=== PATIENT | female | born 1945 | race Asian ===

== ENCOUNTER 2016-11-11 18:20 | Emergency (ER) | payer MEDICARE, MEDICAID ==
[~2016-11-11] VITALS: Ht 152.4 cm; Wt 63.1 kg
[~2016-11-11 18:20] MED LIST: ASPI81TA39 PO; CARV25 PO; LEVO25TA4 PO; METF500T4 PO; PRAV10TA39 PO
[2016-11-11] MEDS ORDERED: AMLO2.5T PO (18:30)
[2016-11-11] MEDS ORDERED: LOSA25TA21 PO (18:30)
[2016-11-11] MEDS ORDERED: SODIUM CHLORIDE 0.9% 1,000 ML IV ONE (19:00)
[2016-11-11 19:07] LABS: BASOPHILS % (AUTO) 0.5 % (0.0-2.0); EOSINOPHILS % (AUTO) 4.4 % (1.0-6.0); HEMATOCRIT 33.9 % (36-46); HEMOGLOBIN 11.6 g/dL (12.0-16.0); LYMPHOCYTES # (AUTO) 1.3 K/uL (1.0-4.8); LYMPHOCYTES % (AUTO) 18.6 % (22.0-44.0); MEAN CORPUSCULAR HEMOGLOBIN 28.8 pg (26.0-34.0); MEAN CORPUSCULAR HGB CONC 34.2 G/dL (31.0-37.0); MEAN CORPUSCULAR VOLUME 84 fL (80-100); MONOCYTES # (AUTO) 0.6 K/uL (0.1-1.0); MONOCYTES % (AUTO) 8.7 % (2.0-9.0); NEUTROPHILS # (AUTO) 4.9 K/uL (1.8-7.7); NEUTROPHILS % (AUTO) 67.8 % (40.0-70.0); PLATELET COUNT (AUTO) 217 K/uL (150-450); RED BLOOD CELL COUNT(AUTO) 4.03 MIL/uL (4.00-5.20); RED CELL DISTRIBUTION WIDTH 12.5 % (11.5-14.5); WHITE BLOOD COUNT (AUTO) 7.2 K/uL (4.5-11.0)
[2016-11-11 19:14] LABS: CALCIUM, TOTAL 9.5 mg/dL (8.8-10.5); CREATININE 1.21 mg/dL (0.60-1.30); POTASSIUM 4.4 mmol/L (3.5-5.1)
[2016-11-11 19:20] LABS: ALBUMIN 4.2 g/dL (3.4-5.0); BILIRUBIN,TOTAL 0.2 mg/dL (0.1-1.0); TOTAL PROTEIN, SERUM 8.7 g/dL (6.4-8.2)
[2016-11-11] MEDS ORDERED: MECLIZINE HCL 25 MG TABLET PO ONE (19:30)
[2016-11-11 20:55] VITALS: BP 121/65
== END 2016-11-11 21:00 | disposition home or self-care (01) ==
LOC: EMS 18:24
DX: R42 Dizziness and giddiness (principal); R51 Headache; E11.9 Type 2 diabetes mellitus without complications; I10 Essential (primary) hypertension; E03.9 Hypothyroidism, unspecified; Z79.82 Long term (current) use of aspirin
CPT/HCPCS: 70450; 82948; 82962; 93005; 99285

== ENCOUNTER 2017-03-29 10:24 | Emergency (ER) | payer MEDICARE, MEDICAID ==
[~2017-03-29] VITALS: Ht 152.4 cm; Wt 61.4 kg
[~2017-03-29 10:24] MED LIST changes: +AMLO2.5T PO; -CARV25 PO; -LEVO25TA4 PO; +LOSA25TA21 PO; -PRAV10TA39 PO
[2017-03-29] MEDS ORDERED: OSEL75 PO (10:56)
[2017-03-29] MEDS ORDERED: BENZ-51 PO (10:56)
[2017-03-29] MEDS ORDERED: ACETAMINOPHEN 325 MG TABLET PO ONE (13:30)
[2017-03-29 13:44] VITALS: BP 145/91
== END 2017-03-29 13:46 | disposition home or self-care (01) ==
LOC: EMS 10:26
DX: J18.9 Pneumonia, unspecified organism (principal); J02.9 Acute pharyngitis, unspecified; J34.89 Other specified disorders of nose and nasal sinuses; E11.9 Type 2 diabetes mellitus without complications; I10 Essential (primary) hypertension; E03.9 Hypothyroidism, unspecified
CPT/HCPCS: 71046; 99284

== ENCOUNTER 2022-03-04 12:21 | Emergency (ER) | payer MEDICARE, MEDICAID ==
[~2022-03-04] VITALS: Ht 152.4 cm; Wt 56.8 kg
[~2022-03-04 12:21] MED LIST changes: -AMLO2.5T PO; +AMLO2.5T96 PO; +BENZ-70 PO; +LOSA-381 PO; -LOSA25TA21 PO; +METF-1211 PO; -METF500T4 PO; +OSEL75 PO
[2022-03-04] MEDS ORDERED: [UNRECOGNIZED DRUG - CODE] PO (12:31)
[2022-03-04] MEDS ORDERED: CALC-1038 PO (12:31)
[2022-03-04] MEDS ORDERED: FLUC150T61 PO (12:31)
[2022-03-04] MEDS ORDERED: PRAV10TA39 PO (12:31)
[2022-03-04] MEDS ORDERED: CARV6 PO (12:31)
[2022-03-04] MEDS ORDERED: CLOTRIMAZOLE 1% 45 GM VAGINAL CREAM VG ONE (13:45)
[2022-03-04 14:18] LABS: APPEARANCE,URINE CLEAR (CLEAR); BILIRUBIN,URINE NEGATIVE (NEGATIVE); GLUCOSE, URINE (UA) >=1000 mg/dL (NEGATIVE); KETONES,URINE NEGATIVE (NEGATIVE); LEUKOCYTE ESTERASE ,URINE SMALL (NEGATIVE); NITRATE,URINE NEGATIVE (NEGATIVE); OCCULT BLOOD,URINE NEGATIVE (NEGATIVE); PROTEIN,URINE NEGATIVE (NEGATIVE); SPECIFIC GRAVITIY, URINE 1.018 (1.003-1.030); UROBILINOGEN,URINE <=1.0 mg/dL (<=1.0)
[2022-03-04 15:16] LABS: BACTERIA,URINE Many /HPF (None Seen); RBC,URINE None Seen /HPF (0-2)
[2022-03-04] MEDS ORDERED: CEPH-558 PO (15:55)
[2022-03-04] MEDS ORDERED: CEPHALEXIN MONOHYDRATE 500 MG CAPSULE PO ONE (16:00)
[2022-03-04 16:14] VITALS: BP 126/72
== END 2022-03-04 16:15 | disposition home or self-care (01) ==
LOC: EMS 12:34
DX: B37.31 Acute candidiasis of vulva and vagina (principal); N39.0 Urinary tract infection, site not specified; E11.9 Type 2 diabetes mellitus without complications; I10 Essential (primary) hypertension; E03.9 Hypothyroidism, unspecified; Z98.890 Other specified postprocedural states
CPT/HCPCS: 81001; 82962; 87086; 87186; 99284

== ENCOUNTER 2022-11-25 09:13 | Emergency (ER) | payer MEDICARE, MEDICAID ==
[~2022-11-25] VITALS: Ht 152.4 cm; Wt 56.8 kg
[~2022-11-25 09:13] MED LIST changes: -BENZ-70 PO; +CALC-1038 PO; +CARV6 PO; +CEPH-558 PO; +FLUC150T61 PO; -OSEL75 PO; +PRAV10TA39 PO; +[UNRECOGNIZED DRUG - CODE] PO
[2022-11-25 09:20] VITALS: BP 130/71; PULSE 93; RESP 18; TEMP 98.2
[2022-11-25] MEDS ORDERED: DOCU-412 PO (09:35)
[2022-11-25] MEDS ORDERED: DIPH25CA85 PO (09:35)
== END 2022-11-25 10:01 | disposition home or self-care (01) ==
LOC: EMS 09:20
DX: G47.00 Insomnia, unspecified (principal); K59.00 Constipation, unspecified; E11.9 Type 2 diabetes mellitus without complications; E78.00 Pure hypercholesterolemia, unspecified; I10 Essential (primary) hypertension; E03.9 Hypothyroidism, unspecified; Z98.890 Other specified postprocedural states
CPT/HCPCS: 82962; 99282

== ENCOUNTER 2022-12-13 10:05 | Emergency (ER) | payer MEDICARE, MEDICAID ==
[~2022-12-13] VITALS: Ht 149.9 cm; Wt 61.4 kg
[~2022-12-13 10:05] MED LIST changes: -CEPH-558 PO; +DIPH25CA85 PO; +DOCU-400 PO; -FLUC150T61 PO
[2022-12-13 10:16] VITALS: TEMP 98.6
[2022-12-13 10:28] LABS: COVID AG,FIA SOURCE NASAL SWAB
[2022-12-13 11:00] LABS: SARS-COV2 (COVID) ANTIGEN,FIA Negative (Negative)
[2022-12-13 11:01] LABS: INFLUENZA TYPE A NEGATIVE FOR TYPE A (NEGATIVE); INFLUENZA TYPE B NEGATIVE FOR TYPE B (NEGATIVE)
[2022-12-13] MEDS ORDERED: AZIT-103 PO (11:13)
[2022-12-13] MEDS ORDERED: AZITHROMYCIN 500 MG TABLET PO ONE (11:15)
[2022-12-13] MEDS ORDERED: EMPA25TA3 PO (11:20)
[2022-12-13] MEDS ORDERED: AMLO5TAB66 PO (11:20)
[2022-12-13] MEDS ORDERED: LOSA-382 PO (11:20)
[2022-12-13] MEDS ORDERED: LEVO75 PO (11:20)
[2022-12-13] MEDS ORDERED: SITA25 PO (11:20)
[2022-12-13 11:28] VITALS: BP 137/80; PULSE 78; RESP 18
== END 2022-12-13 11:45 | disposition home or self-care (01) ==
LOC: EMS 10:05
DX: J40 Bronchitis, not specified as acute or chronic (principal); E11.9 Type 2 diabetes mellitus without complications; E78.00 Pure hypercholesterolemia, unspecified; I10 Essential (primary) hypertension; E03.9 Hypothyroidism, unspecified; Z98.890 Other specified postprocedural states; Z20.822 Contact with and (suspected) exposure to COVID-19
CPT/HCPCS: 99284; 71046; 87426; 82962; 87804; Q9967; C9803

== ENCOUNTER 2022-12-22 08:08 | Emergency (ER) | payer MEDICARE, MEDICAID ==
[~2022-12-22] VITALS: Ht 152.4 cm; Wt 61.4 kg
[~2022-12-22 08:08] MED LIST changes: -AMLO2.5T96 PO; +AMLO5TAB66 PO; +AZIT-103 PO; -DOCU-400 PO; +DOCU-412 PO; +EMPA25TA3 PO; +LEVO75 PO; -LOSA-381 PO; +LOSA-382 PO; +SITA25 PO; -[UNRECOGNIZED DRUG - CODE] PO
[2022-12-22 08:12] VITALS: BP 143/80; PULSE 92; RESP 18; TEMP 97.7
[2022-12-22] MEDS ORDERED: BENZ-227 PO (08:26)
== END 2022-12-22 08:47 | disposition home or self-care (01) ==
LOC: EMS 08:08
DX: J40 Bronchitis, not specified as acute or chronic (principal); E11.9 Type 2 diabetes mellitus without complications; E78.00 Pure hypercholesterolemia, unspecified; I10 Essential (primary) hypertension; E03.9 Hypothyroidism, unspecified
CPT/HCPCS: 82962; 99283

== ENCOUNTER 2022-12-24 11:56 | Emergency (ER) | payer MEDICARE, MEDICAID ==
[~2022-12-24] VITALS: Ht 154.9 cm; Wt 68.2 kg
[~2022-12-24 11:56] MED LIST changes: -AZIT-103 PO; +BENZ-227 PO
[2022-12-24 12:11] VITALS: TEMP 98.6
[2022-12-24 14:36] LABS: BASOPHILS % (AUTO) 0.8 % (0.0-2.0); HEMATOCRIT 36.7 % (36-46); HEMOGLOBIN 11.9 g/dL (12.0-16.0); LYMPHOCYTES # (AUTO) 1.5 K/uL (1.0-4.8); LYMPHOCYTES % (AUTO) 29.1 % (22.0-44.0); MEAN CORPUSCULAR HGB CONC 32.5 G/dL (31.0-37.0); MEAN CORPUSCULAR VOLUME 86 fL (80-100); MONOCYTES # (AUTO) 0.4 K/uL (0.1-1.0); MONOCYTES % (AUTO) 7.8 % (2.0-9.0); NEUTROPHILS # (AUTO) 2.9 K/uL (1.8-7.7); NEUTROPHILS % (AUTO) 55.3 % (40.0-70.0); PLATELET COUNT (AUTO) 224 K/uL (150-450); RED BLOOD CELL COUNT(AUTO) 4.25 MIL/uL (4.00-5.20); WHITE BLOOD COUNT (AUTO) 5.2 K/uL (4.5-11.0)
[2022-12-24 14:46] LABS: CALCIUM, TOTAL 9.9 mg/dL (8.8-10.5); CREATININE 1.01 mg/dL (0.60-1.30); POTASSIUM 4.1 mmol/L (3.5-5.1)
[2022-12-24 14:58] LABS: BILIRUBIN,TOTAL 0.2 mg/dL (0.1-1.0); TOTAL PROTEIN, SERUM 8.9 g/dL (6.4-8.2)
[2022-12-24 15:45] VITALS: BP 133/74; PULSE 82; RESP 18
[2022-12-24] MEDS ORDERED: GUAI-1313 PO (16:05)
[2022-12-28] MEDS ORDERED: MECL-134 PO (16:09)
== END 2022-12-24 16:17 | disposition home or self-care (01) ==
LOC: EMS 12:01
DX: J40 Bronchitis, not specified as acute or chronic (principal); E11.9 Type 2 diabetes mellitus without complications; E78.00 Pure hypercholesterolemia, unspecified; I10 Essential (primary) hypertension; E03.9 Hypothyroidism, unspecified; Z98.890 Other specified postprocedural states
CPT/HCPCS: 71046; 80053; 82962; 83880; 85025; 99284; 36415-L1; 36415-TC

== ENCOUNTER 2023-02-26 13:38 | Emergency (ER) | payer MEDICARE, MEDICAID ==
[~2023-02-26] VITALS: Ht 153.7 cm; Wt 63.6 kg
[~2023-02-26 13:38] MED LIST changes: +MECL-134 PO
[2023-02-26 13:51] VITALS: BP 131/48; PULSE 87; RESP 16; TEMP 97.9
[2023-02-26 13:56] LABS: COVID AG,FIA SOURCE NASAL SWAB
[2023-02-26 14:18] LABS: SARS-COV2 (COVID) ANTIGEN,FIA Negative (Negative)
[2023-02-26 14:19] LABS: INFLUENZA TYPE A NEGATIVE FOR TYPE A (NEGATIVE); INFLUENZA TYPE B NEGATIVE FOR TYPE B (NEGATIVE)
[2023-02-26 14:28] LABS: RAPID GROUP A STREP NEGATIVE (NEGATIVE)
[2023-02-26] MEDS ORDERED: GUAIFDM PO (15:47)
[2023-02-26] MEDS ORDERED: ACET-2247 PO (15:47)
== END 2023-02-26 15:59 | disposition home or self-care (01) ==
LOC: EMS 14:11
DX: J06.9 Acute upper respiratory infection, unspecified (principal); E11.9 Type 2 diabetes mellitus without complications; I63.9 Cerebral infarction, unspecified; E78.00 Pure hypercholesterolemia, unspecified; I10 Essential (primary) hypertension; E03.9 Hypothyroidism, unspecified; G43.909 Migraine, unspecified, not intractable, without status migrainosus; Z98.890 Other specified postprocedural states; Z20.822 Contact with and (suspected) exposure to COVID-19
CPT/HCPCS: 82962; 87430; 87804; 99283

== ENCOUNTER 2023-08-05 09:04 | Emergency (ER) | payer MEDICARE, MEDICAID ==
[~2023-08-05] VITALS: Ht 149.9 cm; Wt 54.5 kg
[~2023-08-05 09:04] MED LIST changes: +ACET-2247 PO; +GUAIFDM PO
[2023-08-05] MEDS ORDERED: CARV6.2534 PO (09:13)
[2023-08-05 09:14] VITALS: BP 168/78; PULSE 76; RESP 18; TEMP 97.9
[2023-08-05 09:48] LABS: BASOPHILS % (AUTO) 0.9 % (0.0-2.0); EOSINOPHILS % (AUTO) 7.6 % (1.0-6.0); HEMATOCRIT 35.3 % (36-46); HEMOGLOBIN 11.4 g/dL (12.0-16.0); LYMPHOCYTES # (AUTO) 1.5 K/uL (1.0-4.8); LYMPHOCYTES % (AUTO) 33.9 % (22.0-44.0); MEAN CORPUSCULAR HEMOGLOBIN 27.7 pg (26.0-34.0); MEAN CORPUSCULAR HGB CONC 32.2 G/dL (31.0-37.0); MEAN CORPUSCULAR VOLUME 86 fL (80-100); MONOCYTES # (AUTO) 0.5 K/uL (0.1-1.0); NEUTROPHILS # (AUTO) 2.2 K/uL (1.8-7.7); NEUTROPHILS % (AUTO) 47.6 % (40.0-70.0); PLATELET COUNT (AUTO) 249 K/uL (150-450); RED BLOOD CELL COUNT(AUTO) 4.11 MIL/uL (4.00-5.20); RED CELL DISTRIBUTION WIDTH 12.6 % (11.5-14.5); WHITE BLOOD COUNT (AUTO) 4.5 K/uL (4.5-11.0)
[2023-08-05 09:59] LABS: CALCIUM, TOTAL 10.1 mg/dL (8.8-10.5); CREATININE 1.04 mg/dL (0.60-1.30); POTASSIUM 4.1 mmol/L (3.5-5.1)
[2023-08-05 10:06] LABS: BILIRUBIN,TOTAL 0.5 mg/dL (0.1-1.0); MAGNESIUM 2.1 mg/dL (1.80-2.40); TOTAL PROTEIN, SERUM 8.8 g/dL (6.4-8.2)
[2023-08-05 10:07] LABS: TROPONIN I-HIGH SENSITIVITY 4 ng/L (<51)
[2023-08-05 11:15] LABS: APPEARANCE,URINE CLEAR (CLEAR); BILIRUBIN,URINE NEGATIVE (NEGATIVE); COLOR,URINE COLORLESS (YELLOW); GLUCOSE, URINE (UA) NEGATIVE (NEGATIVE); KETONES,URINE NEGATIVE (NEGATIVE); LEUKOCYTE ESTERASE ,URINE NEGATIVE (NEGATIVE); NITRATE,URINE NEGATIVE (NEGATIVE); OCCULT BLOOD,URINE NEGATIVE (NEGATIVE); PH,URINE 7.5 (5.0-8.0); PROTEIN,URINE NEGATIVE (NEGATIVE); SPECIFIC GRAVITIY, URINE 1.009 (1.003-1.030); UROBILINOGEN,URINE <=1.0 mg/dL (<=1.0)
[2023-08-05] MEDS ORDERED: MELA3TAB89 PO (11:23)
== END 2023-08-05 11:37 | disposition home or self-care (01) ==
LOC: EMS 09:04
DX: G47.00 Insomnia, unspecified (principal); R53.1 Weakness; E11.9 Type 2 diabetes mellitus without complications; I10 Essential (primary) hypertension
CPT/HCPCS: 71045; 80053; 81003; 82550; 82962; 83735; 83880; 84484; 85025; 93005; 99285; 36415-L1; 36415-TC

== ENCOUNTER → 2023-12-12 | Emergency (ER) | payer MEDICARE, MEDICAID ==
[~2023-12-12] VITALS: Ht 152.4 cm; Wt 56.8 kg
[~2023-12-12] MED LIST changes: -ACET-2247 PO; -AMLO5TAB66 PO; -ASPI81TA39 PO; -CALC-1038 PO; -CARV6 PO; +CARV6.2534 PO; -DIPH25CA85 PO; -DOCU-412 PO; -EMPA25TA3 PO; -GUAIFDM PO; -MECL-134 PO; +MELA3TAB89 PO; -PRAV10TA39 PO; -SITA25 PO
[2023-12-12 11:37] VITALS: TEMP 99
[2023-12-12 12:00] LABS: COVID AG,FIA SOURCE NASAL SWAB
[2023-12-12 12:31] LABS: SARS-COV2 (COVID) ANTIGEN,FIA Negative (Negative)
[2023-12-12 12:32] LABS: INFLUENZA TYPE A NEGATIVE FOR TYPE A (NEGATIVE); INFLUENZA TYPE B NEGATIVE FOR TYPE B (NEGATIVE)
[2023-12-12 13:50] VITALS: BP 131/66; PULSE 72; RESP 18; O2SAT 99
== END | disposition still patient (30) ==
LOC: EMS 11:01
DX: J06.9 Acute upper respiratory infection, unspecified (principal); E03.9 Hypothyroidism, unspecified; E11.59 Type 2 diabetes mellitus with other circulatory complications; E78.00 Pure hypercholesterolemia, unspecified; I10 Essential (primary) hypertension; G43.909 Migraine, unspecified, not intractable, without status migrainosus; Z98.890 Other specified postprocedural states; Z20.822 Contact with and (suspected) exposure to COVID-19
CPT/HCPCS: 82962; 87804; 99283

== ENCOUNTER 2024-03-31 10:06 | Emergency (ER) | payer MEDICARE, MEDICAID ==
[~2024-03-31] VITALS: Ht 154.9 cm; Wt 54.5 kg
[2024-03-31 10:21] VITALS: TEMP 98.4
[2024-03-31] MEDS ORDERED: AMLO5TAB66 PO (10:25)
[2024-03-31] MEDS ORDERED: LEVO88TA7 PO (10:25)
[2024-03-31 10:29] LABS: COVID AG,FIA SOURCE NASAL SWAB
[2024-03-31 10:59] LABS: SARS-COV2 (COVID) ANTIGEN,FIA Negative (Negative)
[2024-03-31 11:00] LABS: INFLUENZA TYPE A NEGATIVE FOR TYPE A (NEGATIVE); INFLUENZA TYPE B NEGATIVE FOR TYPE B (NEGATIVE)
[2024-03-31 11:04] VITALS: BP 113/66; PULSE 87; RESP 16; O2SAT 99
[2024-03-31] MEDS ORDERED: PRAV10TA39 PO (11:15)
[2024-03-31] MEDS: GuaiFENesin/D-METHORPHAN [SUGAR-FREE] 200-20MG/10 ML SYRUP UDCUP PO ONE (11:20)
[2024-03-31] MEDS: ACETAMINOPHEN 500 MG TABLET PO ONE (11:20)
[2024-03-31] MEDS ORDERED: GUAIFDM PO (11:22)
[2024-03-31] MEDS ORDERED: ACET-66 PO (11:22)
== END 2024-03-31 12:01 | disposition home or self-care (01) ==
LOC: EMS 10:09
DX: J06.9 Acute upper respiratory infection, unspecified (principal); E03.9 Hypothyroidism, unspecified; E11.9 Type 2 diabetes mellitus without complications; I10 Essential (primary) hypertension; E78.00 Pure hypercholesterolemia, unspecified; Z87.440 Personal history of urinary (tract) infections; Z79.899 Other long term (current) drug therapy; Z20.822 Contact with and (suspected) exposure to COVID-19
CPT/HCPCS: 71045; 82962; 87804; 99284